=== PATIENT | male | born 1975 | race Caucasian/White ===

== ENCOUNTER 2025-01-11 06:20 | Day surgery (SDC) | payer MEDICAID, SELFPAY ==
[2025-01-10 10:52] VITALS: BMI 21.5
--- NOTE | 2025-01-10 11:04 | EKG_ITS ---
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
[2025-01-10 11:30] LABS: Collection Type, Urine Clean Catch; Squamous Epithelial Cell,Urine 0 /hpf (0-5)
[2025-01-10 11:57] LABS: Basophils # (Auto) 0.1 Thou/mm3 (0.0-0.2); Basophils % (Auto) 1 % (0-2.5); Eosinophils # (Auto) 0.6 Thou/mm3 (0.0-0.5); Eosinophils % (Auto) 7 % (0-10); Hematocrit 43.1 % (41.0-53.0); Hemoglobin 13.5 g/dL (13.5-16.0); Immature Granulocytes Auto 0.02 Thou/mm3 (0.00-0.00); Lymphocytes # (Auto) 2.6 Thou/mm3 (1.0-4.8); Lymphocytes % (Auto) 31 % (10-50); Mean Corpuscular HGB Conc 31.3 g/dl (31.0-37.0); Mean Corpuscular Hemoglobin 28.5 pg (25.0-35.0); Mean Corpuscular Volume 91 fL (80-100); Monocytes # (Auto) 0.5 Thou/mm3 (0.0-0.8); Monocytes % (Auto) 6 % (0-12); Neutrophils # (Auto) 4.7 Thou/mm3 (1.8-7.7); Neutrophils % (Auto) 56 % (37-80); Nucleated Red Blood Cell # 0.00 Thou/mm3 (0.00-0.00); Nucleated Red Blood Cell % 0 /100 WBC (0); Platelet Count 287 Thou/mm3 (140-440); RDW Standard Deviation 42.3 fL (35.1-43.9); Red Blood Count 4.73 Miln/mm3 (4.50-5.90); White Blood Count 8.4 Thou/mm3 (3.8-10.6)
[2025-01-10 12:02] LABS: Bilirubin,Urine Negative (Negative); Blood,Urine Negative (Negative); Clarity,Urine Clear (Clear/Hazy); Color,Urine Lt-Yellow (Lt Yel-Yel); Glucose, Urine Negative (Negative); Ketones,Urine Negative (Negative); Leukocyte Esterase,Urine Negative (Negative); Nitrite,Urine Negative (Negative); PH,Urine 5.5 (5.0-7.0); Protein,Urine Negative (Neg - Trace); RBC,Urine 1 /hpf (0-3); Specific Gravity,Urine 1.031 (1.001-1.035); Urobilinogen,Urine Negative mg/dL (0.0-1.0); WBC,Urine < 1 /hpf (0-5)
[2025-01-10 12:13] LABS: Anion Gap 7 (7-16); BUN/Creatinine Ratio 25 Ratio (12-20); Blood Urea Nitrogen 20 mg/dL (9-23); Calcium 9.7 mg/dL (8.3-10.6); Carbon Dioxide 30.8 mMol/L (20.0-31.0); Chloride 105 mMol/L (98-107); Creatinine (Component) 0.8 mg/dL (0.6-1.3); Estimated Creatinine Clearance 110.1 mL/min (>60); Glucose 97 mg/dL (74-106); Osmolality,Calculated 287 (275-295); Potassium 4.4 mMol/L (3.4-5.1); Sodium 143 mMol/L (136-145); eGFR > 60 See Note
--- NOTE | 2025-01-10 12:32 | ESHP_ITS ---
RE: FADY CORTEZ : 1975 DATE OF ADMISSION: 01/11/2025 HISTORY OF PRESENT ILLNESS: The patient is a 49-year-old gentleman who has bilateral hydroceles. He is now scheduled to have left hydrocelectomy. PAST SURGICAL HISTORY: None. SOCIAL HISTORY: He has 1 child. PAST MEDICAL HISTORY: No history of diabetes mellitus. No history of hypertension. The patient has a bipolar disease. HOME MEDICATIONS: He takes a depression medication and sleeping medication. ALLERGIES: NONE KNOWN. PHYSICAL EXAMINATION: HEENT: Normal. NECK: Supple. LUNGS: Clear. HEART: Sounds are normal. ABDOMEN: Soft without any organomegaly. No guarding. No rigidity. EXTREMITIES: Normal. GENITOURINARY: Phallus is normal. Testes are down in scrotum. There is a left-sided scrotal hydrocele 3 inches in size. There are no inguinal hernias. IMPRESSION: Left hydrocele. PLAN: Left hydrocelectomy. Planned procedure risks and complications have been discussed with the patient. The patient has understood them and agreed to proceed. Thank you. DT: 11:54:40 TT: 12:30:00 Ref: [id number] - TID: [id number]
[2025-01-11] VITALS (7 sets, daily range): BP systolic 105–124; BP diastolic 62–77; PULSE 57–77; RESP 12–20; TEMP 36.3–36.9; O2SAT 95–100; BMI 21.4
--- NOTE | 2025-01-11 07:20 | CHAP ---
Prayed with patient concerning his upcoming procedure.
--- NOTE | 2025-01-11 09:26 | SUR.PHASEI ---
0926 Patient arrived to recovery resting comfortably in [facility], [place], on oxygen 3L via nasal cannula, breathing unlabored, vital sign stable, denies pain, dressing intact to scrotal area; sutures, telfa, fluffs, scrotal support, no bleeding noted, denies nausea, report received from Marquis ANDREA and Lawrence VEGA/Dr. Graham
--- NOTE | 2025-01-11 10:19 | SUR.PHASEII ---
1019 Patient meets discharge criteria from recovery, awake and alert, breathing unlabored, vital sign stable, denies pain, dressing intact; no bleeding noted, drinking water; denies nausea, patient able to dress himself into his clothing, discharge instructions given to patient and patients mother, mother signed discharge instructions. Patient given all his belongings prior to discharge, transported via wheelchair and left in a private vehicle.
--- NOTE | 2025-01-11 11:12 | ESOP_ITS ---
RE: FADY CORTEZ : 1975 DATE OF OPERATION: 01/11/2025 PREOPERATIVE DIAGNOSIS: Left scrotal hydrocele. POSTOPERATIVE DIAGNOSES: Left scrotal hydrocele with prominent appendix of the left testis and small left spermatocele. PROCEDURES PERFORMED: 1. Left hydrocelectomy. 2. Excision and fulguration of the prominent appendix of the left testis. 3. Excision of the small left spermatocele. ANESTHESIA: General by Dr. Graham. INDICATION: The patient is a 49-year-old gentleman who was referred to me with history of a left scrotal hydrocele. The patient's left scrotal hydrocele about 3 inches in size. He is now scheduled to have left hydrocelectomy. Planned procedure, risks, and complications have been discussed with the patient. The patient understood them and agreed to proceed. DESCRIPTION OF PROCEDURE: After the patient was brought to the operating table under adequate general anesthesia and supine position, parts were prepped and draped in the usual fashion. Left scrotal vertical incision was then made approximately 5 cm long. Skin and subcutaneous tissues were incised. Hemostasis was obtained. The hydrocele sac was dissected from all surrounding structures and was opened and was found to contain clear yellow hydrocele fluid approximately 100 mL. The left testis appeared normal. There was a prominent appendix of the left testis, which was excised and fulgurated. The patient also had a small spermatocele above the left testis in the epididymal area. This was also excised. The partial excision of the hydrocele sac was done and eversion of the sac was done behind the spermatic cord structures with 3-0 chromic catgut sutures. Complete hemostasis was obtained. The testis was put back into the left hemiscrotum and scrotal wound was closed in two layers with 3-0 chromic catgut sutures. Local anesthetic was injected at the site of the skin. Sterile dressing was then applied. The patient was then transferred to the recovery room in a satisfactory condition having tolerated the entire procedure well. Sponge count and needle count at the end of the procedure was found to be correct. Estimated blood loss was approximately 2 mL. DT: 09:37:07 TT: 11:11:00 Ref: [id number] - TID: [id number]
== END 2025-01-11 10:19 | disposition home or self-care (01) ==
PROVIDERS: PCP Physician Assistant; Referring Provider Surgery; Visit Provider Surgery
PROC: (CPT 55040; principal; 2025-01-11 08:30)
DX: N43.3 Hydrocele, unspecified (principal); N43.41 Spermatocele of epididymis, single; Z01.810 Encounter for preprocedural cardiovascular examination; R00.1 Bradycardia, unspecified; F31.9 Bipolar disorder, unspecified
CPT/HCPCS: 55040; 54840; 36415; 80048; 81001; 85025; 93005; A4217; A4649; J0690; J1100; J2250; J2405; J2704; J3010; J3490; L8330; A9270